=== PATIENT | male | born 1975 | race Caucasian/White ===

== ENCOUNTER 2016-10-13 13:07 | Day surgery (SDC) | payer OTHER ==
[~2016-10-13] VITALS: Ht 180.3 cm; Wt 93.0 kg
[~2016-10-13 13:07] MED LIST: ADVAIR 500/501 DISK IH; AZOR 10/40 M1 TABLET PO; BENADRYL25 MG PO; CIALIS20 MG PO; NEURONTIN100 MG PO; PERCOCET 5/31 TABLET PO; TOPROL XL50 MG PO; VENTOLIN HFA18 GM IH; ZYLOPRIM300 MG PO
== END 2016-10-13 16:10 | disposition home or self-care (01) ==
LOC: PAIN 13:07 → SDC 13:30 → PAIN 16:10
PROC: 015B3ZZ Destruction of Lumbar Nerve, Percutaneous Approach (ICD-10-PCS; principal; 2016-10-13)
DX: M47.816 Spondylosis without myelopathy or radiculopathy, lumbar region (principal); M54.5 Low back pain; F41.9 Anxiety disorder, unspecified; M96.1 Postlaminectomy syndrome, not elsewhere classified; M99.83 Other biomechanical lesions of lumbar region; J45.909 Unspecified asthma, uncomplicated; I10 Essential (primary) hypertension
CPT/HCPCS: J1030; J2250; J3010; S0020

== ENCOUNTER 2016-11-10 09:19 | Day surgery (SDC) | payer OTHER ==
[~2016-11-10] VITALS: Ht 180.3 cm; Wt 93.0 kg
[2016-11-10] MEDS ORDERED: MEDROL DOSEPAK4 MG PO (10:27)
== END 2016-11-10 12:50 | disposition home or self-care (01) ==
LOC: PAIN 09:19 → SDC 09:45 → PAIN 12:50
PROC: 015B3ZZ Destruction of Lumbar Nerve, Percutaneous Approach (ICD-10-PCS; principal; 2016-11-10)
DX: M47.816 Spondylosis without myelopathy or radiculopathy, lumbar region (principal); M54.5 Low back pain; F41.9 Anxiety disorder, unspecified; M96.1 Postlaminectomy syndrome, not elsewhere classified; M99.83 Other biomechanical lesions of lumbar region; J45.909 Unspecified asthma, uncomplicated; E78.5 Hyperlipidemia, unspecified; I10 Essential (primary) hypertension
CPT/HCPCS: J1030; J3010; S0020

== ENCOUNTER 2017-10-10 07:37 | Day surgery (SDC) | payer OTHER ==
[~2017-10-10] VITALS: Ht 180.3 cm; Wt 93.0 kg
[~2017-10-10 07:37] MED LIST changes: +MEDROL DOSEPAK4 MG PO; -NEURONTIN100 MG PO; +NEURONTIN600 MG PO; +ZANAFLEX2 MG PO
== END 2017-10-10 09:09 | disposition home or self-care (01) ==
LOC: PAIN 07:37 → SDC 08:00 → PAIN 09:09
DX: M47.816 Spondylosis without myelopathy or radiculopathy, lumbar region (principal); M96.1 Postlaminectomy syndrome, not elsewhere classified; J45.909 Unspecified asthma, uncomplicated; E78.5 Hyperlipidemia, unspecified; I10 Essential (primary) hypertension
CPT/HCPCS: J1030; J2250; J3010; S0020

== ENCOUNTER 2017-10-24 06:45 | Day surgery (SDC) | payer OTHER ==
[~2017-10-24] VITALS: Ht 180.3 cm; Wt 93.0 kg
== END 2017-10-24 08:48 | disposition home or self-care (01) ==
LOC: PAIN 06:45 → SDC 07:30 → PAIN 08:48
DX: M47.816 Spondylosis without myelopathy or radiculopathy, lumbar region (principal); M54.5 Low back pain; G89.29 Other chronic pain; M96.1 Postlaminectomy syndrome, not elsewhere classified; M79.1 Myalgia; J45.909 Unspecified asthma, uncomplicated; I10 Essential (primary) hypertension; F41.9 Anxiety disorder, unspecified
CPT/HCPCS: J1030; J2250; J3010; S0020

== ENCOUNTER 2018-01-16 13:08 | Day surgery (SDC) | payer OTHER ==
[~2018-01-16] VITALS: Ht 180.3 cm; Wt 93.0 kg
[~2018-01-16 13:08] MED LIST changes: +SINGULAIR10 MG PO
[2018-01-16] MEDS ORDERED: TOPROL XL100 MG PO (13:39)
[2018-01-16] MEDS ORDERED: AMLODIPINE BESYL5 MG PO (13:41)
[2018-01-16] MEDS ORDERED: HYDROCHLOROTHIA25 MG PO (13:42)
== END 2018-01-16 15:08 | disposition home or self-care (01) ==
LOC: PAIN 13:08
PROC: B01B0ZZ Fluoroscopy of Spinal Cord using High Osmolar Contrast (ICD-10-PCS; principal; 2018-01-16)
PROC: 3E0S33Z Introduction of Anti-inflammatory into Epidural Space, Percutaneous Approach (ICD-10-PCS; principal; 2018-01-16)
DX: M54.16 Radiculopathy, lumbar region (principal); M51.26 Other intervertebral disc displacement, lumbar region; M47.816 Spondylosis without myelopathy or radiculopathy, lumbar region; M96.1 Postlaminectomy syndrome, not elsewhere classified; I10 Essential (primary) hypertension; E78.5 Hyperlipidemia, unspecified
CPT/HCPCS: J1100; J2250

== ENCOUNTER 2018-02-13 07:42 | Day surgery (SDC) | payer OTHER ==
[~2018-02-13] VITALS: Ht 180.3 cm; Wt 93.0 kg
[~2018-02-13 07:42] MED LIST changes: +AMLODIPINE BESYL5 MG PO; +HYDROCHLOROTHIA25 MG PO; +TOPROL XL100 MG PO
[2018-02-13 08:35] LABS: CHLORIDE 103 MEQ/L (99-109); CREATININE 1.6 MG/DL (0.6-1.3); GFR ESTIMATE (CALCULATED) 50 mL/min/ (58.99-99999); GLUCOSE 88 mg/dL (70-99); POTASSIUM 2.9 MEQ/L (3.7-5.4); SODIUM 139 MEQ/L (136-147); UREA NITROGEN (BUN) 24 mg/dL (9-23)
== END 2018-02-13 09:09 | disposition home or self-care (01) ==
LOC: PAIN 07:42 → SDC 08:00 → PAIN 08:00
PROVIDERS: Anesthesiology Pain Medicine
PROC: 3E0R3BZ Introduction of Anesthetic Agent into Spinal Canal, Percutaneous Approach (ICD-10-PCS; principal; 2018-02-13)
PROC: B01B1ZZ Fluoroscopy of Spinal Cord using Low Osmolar Contrast (ICD-10-PCS; principal; 2018-02-13)
PROC: 3E0R33Z Introduction of Anti-inflammatory into Spinal Canal, Percutaneous Approach (ICD-10-PCS; principal; 2018-02-13)
DX: M47.816 Spondylosis without myelopathy or radiculopathy, lumbar region (principal); M51.16 Intervertebral disc disorders with radiculopathy, lumbar region; E78.5 Hyperlipidemia, unspecified; M48.061 Spinal stenosis, lumbar region without neurogenic claudication; I10 Essential (primary) hypertension; M79.1 Myalgia; J45.909 Unspecified asthma, uncomplicated
CPT/HCPCS: 80048; J1100; J2250